=== PATIENT | male | born 1940 | race Caucasian/White ===

== ENCOUNTER → 2017-08-30 | Outpatient (CLI) | payer MEDICARE, BC ==
[~2017-08-30] MED LIST: ASPIRIN325 PO; CIPROFLOXACIN500 M1 PO; JALYN 0.5-0.41 EACH PO; LISINOPRIL5 MG PO; METOPROLOL TART75 MG PO; OMEGA-31000 M1 PO; TYLENOL325 MG PO; ZOCOR40 MG PO
== END ==
LOC: M.RAD 10:11
DX: R47.02 Dysphasia (principal)